=== PATIENT | male | born 1935 | race Caucasian/White ===

== ENCOUNTER 2021-06-05 15:49 | Inpatient (IN) | payer MEDICARE, OTHER ==
[~2021-06-05] VITALS: Ht 177.8 cm; Wt 113.4 kg
--- NOTE | 2021-06-05 16:15 | NUR ---
Patient is AOx4 but can not recall all his home medicine's dosages@this time.
[2021-06-05] MEDS ORDERED: HYDROCODONE/APAP 5-325MG TABLET PO ONE (16:30)
[2021-06-05] MEDS ORDERED: BISO1TAB10 PO (16:46)
[2021-06-05] MEDS ORDERED: ASPI81TA31 PO (16:46)
[2021-06-05] MEDS ORDERED: OMEP40CA21 PO (16:46)
[2021-06-05] MEDS ORDERED: MAGN200T5 PO (16:46)
[2021-06-05] MEDS ORDERED: LORA0.5T PO (16:47)
[2021-06-05] MEDS ORDERED: CYAN500T9 PO (16:47)
[2021-06-05] MEDS ORDERED: DULOXETINE PO (16:49)
[2021-06-05] MEDS ORDERED: HYDROCODONE/APAP 5-325MG TABLET ONE (17:03)
[2021-06-05] MEDS ORDERED: LISI10TA29 PO (17:28)
[2021-06-05 17:37] LABS: HEMATOCRIT 37.6 % (36.7-47.1); MEAN CORPUSCULAR HEMOGLOBIN 32.8 uug (23.8-33.4); MEAN CORPUSCULAR VOLUME 94.6 fL (73.0-96.2); PLATELET COUNT (AUTO) 211 K/uL (152-348)
[2021-06-05 17:47] LABS: CREATININE 1.1 mg/dL (0.6-1.3); POTASSIUM 4.7 mmol/L (3.5-5.1)
[2021-06-05 17:58] LABS: MAGNESIUM 1.7 mg/dL (1.8-2.4)
[2021-06-05 18:03] LABS: BILIRUBIN,DIRECT 0.1 mg/dL (0.0-0.2); BILIRUBIN,TOTAL 0.4 mg/dL (0.2-1.0); TOTAL PROTEIN, SERUM 7.2 g/dL (6.4-8.2)
[2021-06-05] MEDS ORDERED: DULO30CA52 PO (18:14)
[2021-06-05] MEDS ORDERED: MAGN250T37 PO (18:14)
[2021-06-05] MEDS ORDERED: BISO1TAB7 PO (18:14)
[2021-06-05] MEDS ORDERED: CYAN-28 PO (18:15)
[2021-06-05] MEDS ORDERED: CYCL5TAB PO (18:17)
[2021-06-05] MEDS ORDERED: ARMO250T6 PO (18:17)
[2021-06-05] MEDS ORDERED: LORA1TAB PO (18:17)
[2021-06-05] MEDS ORDERED: GABA-536 PO (18:17)
--- NOTE | 2021-06-05 19:08 | NUR ---
Received report from Pk Saini RN.
[2021-06-05] MEDS ORDERED: LISINOPRIL 10 MG TABLET PO SCH (19:45)
[2021-06-05] MEDS ORDERED: ACETAMINOPHEN 325 MG TABLET PO PRN (19:45)
[2021-06-05] MEDS ORDERED: GABAPENTIN 400 MG CAPSULE PO SCH ×2 (19:45→22:00)
[2021-06-05] MEDS ORDERED: LORAZEPAM 1 MG TABLET PO SCH (19:45)
[2021-06-05] MEDS ORDERED: CYANOCOBALAMIN 1,000 MCG TABLET PO ONE (19:45)
[2021-06-05] MEDS ORDERED: MORPHINE SULFATE 2 MG/1 ML DISP.SYRIN IV PRN (19:45)
[2021-06-05] MEDS ORDERED: ONDANSETRON 4 MG/2 ML VIAL IV PRN (19:45)
[2021-06-05] MEDS ORDERED: IV NS 1000 ML 1,000 ML IV PRN (20:00)
--- NOTE | 2021-06-05 20:59 | NUR ---
Report given to Sabrina CASTORENA [facility].
--- NOTE | 2021-06-05 21:22 | NUR ---
Pt. admitted to Med Surg , under care of Dx: right ankle fracture pt stable, denies any pain/discomfort. Belongs List completed
[2021-06-05 22:13] VITALS: BP 135/67
--- NOTE | 2021-06-05 22:30 | NUR ---
RECEIVED PATIENT VIA W/C FROM ER. PATIENT IS A/O X4, VERY PLEASANT WHEN APPROACHED. VSS. DENIES ANY PAIN AT THIS TIME, WAS PREVIOUSLY MEDICATED IN ER. RIGHT ANKLE PLACED IN SPLINT AND WRAPPED IN ER. ELEVATED ON PILLOWS. PATIENT HAS FADING BRUISING NOTED TO CHIN AND RIGHT ELBOW, SMALL PINK ABRASION NOTED TO LEFT FA. PATIENT REFUSED PICTURES. HEPLOCK NOTED TO RIGHT WRIST #22 GAUGE. ORIENTED TO ROOM AND CALL LIGHT. CALL LIGHT IN REACH. BED ALARM ON. WILL CONTINUE TO MONITOR AND ASSESS.
[2021-06-05] MEDS: MAGNESIUM OXIDE 250 MG TABLET PO SCH (22:35)
--- NOTE | 2021-06-05 22:35 | NUR ---
UPON ASSESSMENT, PATIENT STATED WHILE DISCUSSING CODE STATUS, THAT HE "DOES NOT WANT ANY CPR FOR CARDIAC ARREST, BUT OK TO INTUBATE FOR RESPIRATORY DISTRESS." GLASSWARE ENGRAVER/MD NOTIFIED. PATIENT REFUSED IVF AT THIS TIME. PATIENT STATED HE WILL TALK WITH MD ABOUT ORDERS IN AM. ALL NEEDS ATTENDED.
[2021-06-06] MEDS: HYDROCODONE/APAP 5-325MG TABLET PO PRN ×2 (02:03→15:42)
[2021-06-06] MEDS ORDERED: GABAPENTIN 400 MG CAPSULE PO PRN (02:15)
[2021-06-06 04:00] VITALS: BP 131/60
[2021-06-06 06:35] LABS: HEMATOCRIT 34.9 % (36.7-47.1); MEAN CORPUSCULAR HEMOGLOBIN 32.9 uug (23.8-33.4); MEAN CORPUSCULAR VOLUME 95.2 fL (73.0-96.2); PLATELET COUNT (AUTO) 185 K/uL (152-348)
[2021-06-06 06:56] LABS: CREATININE 1.1 mg/dL (0.6-1.3); MAGNESIUM 1.6 mg/dL (1.8-2.4); PHOSPHOROUS 3.7 mg/dL (2.5-4.9); POTASSIUM 4.2 mmol/L (3.5-5.1)
[2021-06-06] MEDS: ASPIRIN 81 MG TAB.CHEW PO SCH (08:19)
[2021-06-06] MEDS: PANTOPRAZOLE SODIUM 40 MG TABLET.DR PO SCH (08:20)
[2021-06-06] MEDS: CYCLOBENZAPRINE HCL 10 MG TABLET PO SCH (08:20)
[2021-06-06] MEDS: DULOXETINE 30 MG CAPSULE.DR PO SCH (08:20)
[2021-06-06] MEDS: LISINOPRIL 10 MG TABLET PO SCH (08:21)
[2021-06-06] MEDS: MAGNESIUM OXIDE 250 MG TABLET PO SCH (08:41)
[2021-06-06] MEDS ORDERED: MAGNESIUM OXIDE 400 MG TABLET PO ONE (11:30)
[2021-06-06 12:00] VITALS: BP 127/66
--- NOTE | 2021-06-06 12:00 | NUR ---
PATIENT SEEN AND EXAMINED BY KELVIN BORGES WITH NO NEW ORDERS AT THIS TIME KELVIN STATED THAT DR HANSEN IS PLANNING TO OPERATE ON THIS PATIENT ON TUESDAY.PATIENT AWARE AND STATED WANTS TO TALK TO DR HANSEN BEFORE ANY SURGERY CAN BE ALLOWED.
--- NOTE | 2021-06-06 15:43 | NUR ---
PATIENT SEEN AND EXAMINED BY DR HAAS FOR CARDIOLOGY CLEARANCE WITH NO NEW ORDERS AT THIS TIME HE WAS MEDICATED WITH [facility] REQUESTED REPOSITIONED AND MADE COMFORTABLE.
--- NOTE | 2021-06-06 15:49 | NUR ---
PATIENT HAS BEEN REFUSING TO HAVE HIS IVF INFUSSION ORDERED KELVIN NOTIFIED WITH ORDER TO DISCONTINUE AND NOTED.
[2021-06-06 15:50] VITALS: BP 148/66
--- NOTE | 2021-06-06 18:29 | NUR ---
PATIENT STATED TAKES DOXAZOSIN 8 MG 1-2 TIMES A DAY AND THIS MEDICATION IS NOT LISTED IN HIS HOME MEDICATION LIST CALL DR SERRANO SPOKE WITH HER WITH [employer] TO GIVE PHARMACY NOTIFIED
--- NOTE | 2021-06-06 19:30 | NUR ---
RECEIVED PATIENT AWAKE IN BED. A/O X3-4. DENIES ANY BARNES OR DISCOMFORT AT THIS TIME. NO RESP. DISTRESS NOTED. RLL ELEVATED ON PILLOW. H/L INTACT AND PATENT, NOTED TO RIGHT FA #22 GAUGE. VS WNL. CALL LIGHT IN REACH. BED ALARM ON. WILL CONTINUE TO MONITOR AND ASSESS.
[2021-06-06 20:00] VITALS: BP 148/85
[2021-06-06] MEDS: ENOXAPARIN SODIUM 40 MG/0.4 ML DISP.SYRIN SQ SCH (20:41)
[2021-06-06] MEDS ORDERED: DOXAZOSIN 2 MG TABLET PO SCH (21:00)
[2021-06-06] MEDS: LORAZEPAM 1 MG TABLET PO PRN (21:39)
[2021-06-07 04:00] VITALS: BP 118/62
--- NOTE | 2021-06-07 06:53 | NUR ---
PATIENT SLEPT WELL THROUGHOUT THE NIGHT. DENIES ANY PAIN. CALL LIGHT IN REACH. ALL NEEDS ATTENDED. WILL CONTINUE TO MONITOR AND ASSESS.
[2021-06-07] MEDS: ASPIRIN 81 MG TAB.CHEW PO SCH ×2 (08:06→08:21)
[2021-06-07] MEDS: CYCLOBENZAPRINE HCL 10 MG TABLET PO SCH (08:06)
[2021-06-07] MEDS: PANTOPRAZOLE SODIUM 40 MG TABLET.DR PO SCH (08:06)
[2021-06-07] MEDS: DULOXETINE 30 MG CAPSULE.DR PO SCH (08:06)
[2021-06-07] MEDS: MAGNESIUM OXIDE 250 MG TABLET PO SCH (08:06)
[2021-06-07] MEDS: LISINOPRIL 10 MG TABLET PO SCH (08:07)
--- NOTE | 2021-06-07 08:30 | NUR ---
RECEIVED PATIENT IN BED AWAKE ALERT AND ORIENTED DENIES PAIN OR DISCOMFORTS AT THIS TIME ALL DUE MEDICATIONS GIVEN EXCEPT THAT HE REFUSED HIS LOW DOSE ASPIRIN STATED WILL NOT TAKE UNTIL AFTER HIS SURGERY RIGHT LEG ELEVATED ON THE PILLOW WITH ADEQUATE CIRCULATION CALL LIGHT AND HIS PERSONAL BELONGINGS ARE WITHIN EASY REACH AT THIS TIME MADE COMFORTABLE WILL CONTINUE TO OBSERVE AND PROVIDE COMFORT.
[2021-06-07 11:33] VITALS: BP 149/74
[2021-06-07] MEDS ORDERED: DOXA8TAB79 PO (13:34)
[2021-06-07] MEDS: DOXAZOSIN 2 MG TABLET PO SCH (14:00)
--- NOTE | 2021-06-07 14:00 | NUR ---
PATIENT SEEN BY KELVIN SERRANO DNP WITH NO NEW ORDERS AT THIS TIME.
[2021-06-07 16:00] VITALS: BP 148/74
--- NOTE | 2021-06-07 18:00 | NUR ---
CONTINUE ON PAIN MANAGEMENT AWAITING FOR DR HANSEN RESTING WITH ADEQUATE CIRCULATION TO HIS RIGHT TOES MADE COMFORTABLE WILL CONTINUE TO OBSERVE.
--- NOTE | 2021-06-07 19:00 | NUR ---
Received pt in bed, A&Ox4, verbally responsive and able to make needs known. No s/s of respiratory distress, denies any pain or discomfort at this time. Discussed plan of care with the pt. Safety measures initiated, call light within reach.
[2021-06-07 20:00] VITALS: BP 94/48
[2021-06-07] MEDS: ENOXAPARIN SODIUM 40 MG/0.4 ML DISP.SYRIN SQ SCH (20:35)
[2021-06-07] MEDS: LORAZEPAM 1 MG TABLET PO PRN (21:45)
[2021-06-08 04:00] VITALS: BP 165/81
[2021-06-08 06:00] VITALS: BP 133/72
--- NOTE | 2021-06-08 06:38 | NUR ---
Slept through the night, tolerated medications. No signs of acute distress. No significant change in condition noted through the night. all needs attended to and met. Safety measures maintained at all times.
--- NOTE | 2021-06-08 07:10 | NUR ---
received patient in bed awake and alert, HOB elevated. no complains of any SOB, pain or discomfort. call light and belongings within reach. will continue to monitor.
[2021-06-08] MEDS: DULOXETINE 30 MG CAPSULE.DR PO SCH (08:44)
[2021-06-08] MEDS: ASPIRIN 81 MG TAB.CHEW PO SCH (08:44)
[2021-06-08] MEDS: CYCLOBENZAPRINE HCL 10 MG TABLET PO SCH (08:46)
[2021-06-08] MEDS: PANTOPRAZOLE SODIUM 40 MG TABLET.DR PO SCH (08:46)
[2021-06-08] MEDS: LISINOPRIL 10 MG TABLET PO SCH (08:46)
[2021-06-08] MEDS: MAGNESIUM OXIDE 250 MG TABLET PO SCH (08:46)
[2021-06-08] MEDS: DOXAZOSIN 2 MG TABLET PO SCH (08:46)
[2021-06-08] MEDS ORDERED: ATOR40TA PO (10:08)
[2021-06-08] MEDS ORDERED: ATORVASTATIN 40 MG TABLET PO SCH (10:15)
[2021-06-08 11:30] VITALS: BP 105/62
[2021-06-08] MEDS ORDERED: HYDROCHLOROTHIAZIDE 12.5 MG CAPSULE PO SCH (11:45)
[2021-06-08] MEDS ORDERED: METOPROLOL TARTRATE 25 MG TABLET PO SCH (11:45)
[2021-06-08 15:43] VITALS: BP 144/60
--- NOTE | 2021-06-08 17:04 | NUR ---
patients discharge order carried out. patient will be discharged with walker, nursing type disk quality control supervisor called. awaiting for nursing type disk quality control supervisor to deliver walker.l
== END 2021-06-08 18:26 | disposition home health service (06) | DRG 562 ==
LOC: ER 15:51 → MEDSURG3 21:12
PROVIDERS: ADMIT Nurse Practitioner Acute Care; ATTEND Nurse Practitioner Acute Care
PROC: 2W3QX1Z Immobilization of Right Lower Leg using Splint (ICD-10-PCS; principal; 2021-06-05)
DX: S82.831A Other fracture of upper and lower end of right fibula, initial encounter for closed fracture (principal); N17.0 Acute kidney failure with tubular necrosis; D68.59 Other primary thrombophilia; E87.1 Hypo-osmolality and hyponatremia; E44.1 Mild protein-calorie malnutrition; W18.40XA Slipping, tripping and stumbling without falling, unspecified, initial encounter; Y92.89 Other specified places as the place of occurrence of the external cause; I10 Essential (primary) hypertension; Z74.09 Other reduced mobility; E83.42 Hypomagnesemia; Z88.5 Allergy status to narcotic agent; E78.5 Hyperlipidemia, unspecified; I25.10 Atherosclerotic heart disease of native coronary artery without angina pectoris; Z79.82 Long term (current) use of aspirin; Z79.899 Other long term (current) drug therapy; E66.9 Obesity, unspecified; R26.2 Difficulty in walking, not elsewhere classified; K22.70 Barrett's esophagus without dysplasia; N40.0 Benign prostatic hyperplasia without lower urinary tract symptoms
CPT/HCPCS: 36415; 70030-TC; 71045; 73610; 83735; 84100; 85025; 85730; 86850; 86900; 86901; 93307; 97161; A4663; G0378